=== PATIENT | female | born 1950 | race Two or more races ===

== ENCOUNTER 2018-10-22 01:29 | Emergency (ER) | payer MEDICARE, MEDICAID ==
[~2018-10-22] VITALS: Ht 152.4 cm; Wt 66.2 kg
[2018-10-22 02:04] LABS: Basophils # (auto) 0 uL; Basophils % (auto) 0.4 % (0.0-2.0); Eosinophils # (auto) 0.1 uL; Hematocrit 36.2 % (36.0-46.0); Mean Corpuscular Hemoglobin 28.5 pg (28.0-32.0); Mean Corpuscular Volume 86.3 fL (80.0-100.0); Monocytes # (auto) 0.9 uL; Monocytes % (auto) 8.5 % (0.0-12.0); Neutrophils # (auto) 6.6 uL; Neutrophils % (auto) 62.1 % (37.0-80.0); Platelet Count (auto) 218 10^3/uL (140-450); Red Cell Distribution Width 13.9 % (11.8-14.3); White Blood Cell 10.6 10^3/uL (4.4-10.8)
[2018-10-22 02:25] LABS: INR 0.93 (0.9-1.15)
[2018-10-22 02:37] LABS: Alanine Aminotransferase 32 U/L (13-56); Albumin 3.7 g/dL (3.4-5.0); Anion Gap 10 (5-15); Aspartate Aminotransferase 20 U/L (15-37); BUN/Creatinine Ratio 17.6; Blood Urea Nitrogen 15 mg/dL (7-18); Calcium 8.8 mg/dL (8.5-10.1); Carbon Dioxide 26 mmol/L (21-32); Chloride 99 mmol/L (98-107); GFR African American 85 mL/min; GFR Non-African American 70 mL/min; Glucose 153 mg/dL (74-106); Magnesium 1.7 mg/dL (1.6-2.6); Potassium 3.8 mmol/L (3.5-5.1); Sodium 135 mmol/L (136-145)
[2018-10-22 02:41] LABS: Urine Bacteria FEW /hpf (None Seen); Urine Blood Negative /uL (Negative); Urine Mucus FEW (None Seen); Urine Specific Gravity 1.005 (1.001-1.035); Urine WBC 6 /hpf (0 - 5)
[2018-10-22 02:42] LABS: Alkaline Phosphatase 92 U/L (45-117); Bilirubin, Total 0.3 mg/dL (0.2-1.0); Total Protein 7.9 g/dL (6.4-8.2)
[2018-10-22] MEDS ORDERED: LORazepam 0.5 MG TAB PO ONE (04:00)
[2018-10-22] MEDS ORDERED: LORazepam 0.5 MG TAB ONE (04:30)
[2018-10-22 04:41] VITALS: BP 155/74
== END 2018-10-22 04:48 | disposition home or self-care (01) ==
LOC: EDBD 01:38 → ER 01:38
DX: F41.9 Anxiety disorder, unspecified (principal); F32.9 Major depressive disorder, single episode, unspecified; N39.0 Urinary tract infection, site not specified; E11.9 Type 2 diabetes mellitus without complications; E78.5 Hyperlipidemia, unspecified
CPT/HCPCS: 36415; 71045; 80053; 81001; 82962; 83735; 83880; 84484; 85025; 85610; 85730; 93005

== ENCOUNTER 2022-01-18 05:41 | Inpatient (IN) | payer BC, MEDICAID ==
[~2022-01-18] VITALS: Ht 162.6 cm; Wt 71.8 kg
[2022-01-18] MEDS ORDERED: dilTIAZem 25 MG/5 ML VIAL IV ONE ×2 (05:54→06:15)
[2022-01-18] MEDS ORDERED: SODIUM CHLORIDE 0.9% 1,000 ML IV ONE (07:00)
[2022-01-18] MEDS ORDERED: SODIUM CHLORIDE 0.9% 1,000 ML IVB ONE (07:00)
[2022-01-18] MEDS ORDERED: ASPirin 81 mg TAB PO ONE (07:00)
[2022-01-18] MEDS ORDERED: AMIODARONE HCL 150 MG in D5W 5% 100 ML IV ONE (08:30)
[2022-01-18] MEDS ORDERED: AMIODARONE 450mg/250ml AE 250 ML IV SCH (08:45)
[2022-01-18 08:59] LABS: Basophils # (auto) 0 10 ^3/uL (0-0.2); Basophils % (auto) 0.5 % (0.0-2.0); Eosinophils # (auto) 0 10 ^3/uL (0-0.8); Eosinophils % (auto) 0.3 % (0.0-7.0); Hematocrit 31.3 % (36.0-46.0); Hemoglobin 10.5 g/dL (12.2-16.2); Lymphocytes # (auto) 1.8 10 ^3/uL (0.4-5.4); Lymphocytes % (auto) 24.2 % (10.0-50.0); Mean Corpuscular Hemoglobin 29.4 pg (28.0-32.0); Mean Corpuscular Hgb Conc. 33.6 g/dL (32.0-36.0); Mean Corpuscular Volume 87.7 fL (80.0-100.0); Monocytes # (auto) 0.6 10 ^3/uL (0-1.3); Monocytes % (auto) 7.6 % (0.0-12.0); Neutrophils % (auto) 67.4 % (37.0-80.0); Red Blood Cells 3.57 10^6/uL (4.0-5.20); White Blood Cell 7.5 10^3/uL (4.4-10.8)
[2022-01-18 09:08] LABS: INR 1.04 (0.9-1.15); Partial Thromboplastin Time 26.2 sec (23.6-33.0)
[2022-01-18 09:10] LABS: Albumin 2.9 g/dL (3.4-5.0); Magnesium 2.1 mg/dL (1.6-2.6); Potassium 3.9 mmol/L (3.5-5.1)
[2022-01-18 09:14] LABS: BUN/Creatinine Ratio 29.3; Bilirubin, Total 0.2 mg/dL (0.2-1.0); Total Protein 6.3 g/dL (6.4-8.2)
[2022-01-18] MEDS ORDERED: IOHEXOL 350 MG/ML 100ML IJ ONE (09:42)
[2022-01-18] MEDS ORDERED: ONDANSETRON HCL 4 MG/2 ML VIAL IV ONE (09:45)
[2022-01-18] MEDS ORDERED: ENOXAPARIN SOD 80 MG/0.8ML SYRINGE SC ONE (10:45)
[2022-01-18] MEDS ORDERED: MORPHINE SULFATE INJ 2 MG/ml SYRG IV PRN ×2 (12:00→12:45)
[2022-01-18] MEDS ORDERED: DEXTROSE (50%) 50ML SYRG IV PRN (12:00)
[2022-01-18] MEDS ORDERED: NITROGLYCERIN 0.4 MG SL TAB SL PRN (12:00)
[2022-01-18] MEDS ORDERED: METOPROLOL TARTRATE 1MG/1ML-5ML VIAL IV PRN (12:45)
[2022-01-18] MEDS ORDERED: LORazepam 0.5 MG TAB PO PRN (12:45)
[2022-01-18] MEDS ORDERED: ONDANSETRON HCL 4 MG/2 ML VIAL IV PRN (12:45)
[2022-01-18] MEDS ORDERED: DOCUSATE SOD 100 MG CAP PO PRN (12:45)
[2022-01-18] MEDS ORDERED: HYDROcodone-ACET 5/325MG TAB PO PRN (12:45)
[2022-01-18] MEDS: cefTRIAXone 1GM/50ML D5W 50 ML IV SCH (12:58)
[2022-01-18] MEDS: SODIUM CHLORIDE 0.9% 1,000 ML IV SCH (13:28)
[2022-01-18 14:29] LABS: Urine Bacteria NONE SEEN /hpf (None Seen); Urine Blood Negative /uL (Negative); Urine Specific Gravity 1.045 (1.001-1.035); Urine WBC 44 /hpf (0 - 5)
[2022-01-18 15:19] LABS: INR 1.04 (0.9-1.15); Partial Thromboplastin Time 29.8 sec (23.6-33.0)
[2022-01-18 15:24] LABS: Magnesium 1.7 mg/dL (1.6-2.6); Phosphorus 3.6 mg/dL (2.5-4.90)
[2022-01-18] MEDS: ACCU-CHEK COMFORT CURVE STRIP VI SCH ×2 (17:00→22:00)
[2022-01-18] MEDS: InsuLIN REG 1unit/0.01ml Soln (100units/ml) SC SCH ×2 (18:33→22:00)
[2022-01-18] MEDS: AMIODARONE 450mg/250ml AE 250 ML IV SCH (18:34)
[2022-01-18] MEDS: ATORVASTATIN 20 MG TAB PO SCH (23:29)
[2022-01-19 05:05] LABS: Basophils # (auto) 0.1 10 ^3/uL (0-0.2); Basophils % (auto) 0.8 % (0.0-2.0); Eosinophils # (auto) 0.1 10 ^3/uL (0-0.8); Eosinophils % (auto) 0.8 % (0.0-7.0); Hematocrit 30.1 % (36.0-46.0); Hemoglobin 10.2 g/dL (12.2-16.2); Lymphocytes # (auto) 2.8 10 ^3/uL (0.4-5.4); Mean Corpuscular Hemoglobin 30.2 pg (28.0-32.0); Mean Corpuscular Volume 88.8 fL (80.0-100.0); Monocytes # (auto) 0.5 10 ^3/uL (0-1.3); Monocytes % (auto) 6.6 % (0.0-12.0); Neutrophils # (auto) 3.9 10 ^3/uL (1.6-8.6); Neutrophils % (auto) 53.8 % (37.0-80.0); Nucleated Red Blood Cells % 0.1 %; Red Blood Cells 3.39 10^6/uL (4.0-5.20); White Blood Cell 7.3 10^3/uL (4.4-10.8)
[2022-01-19 05:21] LABS: INR 1.04 (0.9-1.15); Partial Thromboplastin Time 24.2 sec (23.6-33.0)
[2022-01-19] MEDS: SODIUM CHLORIDE 0.9% 1,000 ML IV SCH ×2 (05:25→22:52)
[2022-01-19 05:28] LABS: BUN/Creatinine Ratio 25.6; Calcium 8.3 mg/dL (8.5-10.1); Magnesium 1.8 mg/dL (1.6-2.6); Potassium 3.5 mmol/L (3.5-5.1); Uric Acid 3.8 mg/dL (2.6-6.0)
[2022-01-19 05:32] LABS: Bilirubin, Total 0.3 mg/dL (0.2-1.0); CRP High Sensitivity 0.88 mg/dL (< 0.3); Phosphorus 3.2 mg/dL (2.5-4.90); Thyroid Stimulating Hormone 3.54 uIU/mL (0.358-3.74); Total Protein 6.3 g/dL (6.4-8.2)
[2022-01-19] MEDS: ACCU-CHEK COMFORT CURVE STRIP VI SCH ×4 (07:02→22:21)
[2022-01-19] MEDS: InsuLIN REG 1unit/0.01ml Soln (100units/ml) SC SCH ×4 (07:03→22:33)
[2022-01-19] MEDS: AMIODARONE 450mg/250ml AE 250 ML IV SCH ×2 (09:37→22:32)
[2022-01-19] MEDS: cefTRIAXone 1GM/50ML D5W 50 ML IV SCH (09:37)
[2022-01-19] MEDS ORDERED: FAMOTIDINE (10MG/ML) 2ML VL IV SCH (10:00)
[2022-01-19] MEDS: ASPirin 81 mg TAB PO SCH (10:34)
[2022-01-19] MEDS: ENOXAPARIN SOD 40 MG/0.4 ML SYRINGE SC SCH (10:36)
[2022-01-19] MEDS: hydrALAZINE HCL 20 MG/ML VL IV PRN (13:37)
[2022-01-19] MEDS ORDERED: METF-372 PO (15:06)
[2022-01-19] MEDS ORDERED: FER325T PO (15:06)
[2022-01-19] MEDS ORDERED: EMPA1TAB PO (15:06)
[2022-01-19] MEDS ORDERED: SIMV-13 PO (15:06)
[2022-01-19] MEDS ORDERED: LOSA-39 PO (15:06)
[2022-01-19] MEDS ORDERED: HYDR25TA4 PO (15:06)
[2022-01-19] MEDS ORDERED: ALBUAER3 IN (15:06)
[2022-01-19] MEDS ORDERED: ASPI1TAB20 PO (15:06)
[2022-01-19 16:46] VITALS: BP 154/63
[2022-01-19 22:00] VITALS: BP 168/73
[2022-01-19] MEDS: ATORVASTATIN 20 MG TAB PO SCH (22:20)
[2022-01-19] MEDS: METOPROLOL TARTRATE 25 MG TAB PO SCH (22:21)
[2022-01-20 05:00] VITALS: BP 116/63
[2022-01-20] MEDS: InsuLIN REG 1unit/0.01ml Soln (100units/ml) SC SCH ×2 (05:54→13:11)
[2022-01-20] MEDS: ACCU-CHEK COMFORT CURVE STRIP VI SCH ×2 (05:54→13:11)
[2022-01-20] MEDS: cefTRIAXone 1GM/50ML D5W 50 ML IV SCH (08:52)
[2022-01-20 09:00] VITALS: BP 152/53
[2022-01-20] MEDS: METOPROLOL TARTRATE 25 MG TAB PO SCH (10:00)
[2022-01-20] MEDS ORDERED: METO25TA5 PO (10:11)
[2022-01-20] MEDS ORDERED: AMIO200T33 PO (10:11)
[2022-01-20] MEDS ORDERED: LEVO750T8 PO (10:11)
[2022-01-20] MEDS ORDERED: AMIODARONE HCL 200 MG TAB PO ONE (10:15)
[2022-01-20] MEDS: ASPirin 81 mg TAB PO SCH (12:20)
[2022-01-20] MEDS: ENOXAPARIN SOD 40 MG/0.4 ML SYRINGE SC SCH (12:25)
[2022-01-20] MEDS: hydrALAZINE HCL 20 MG/ML VL IV PRN (12:55)
[2022-01-20 15:13] VITALS: BP 178/60
[2022-01-20] MEDS ORDERED: cloNIDine HCL 0.1 MG TAB PO ONE (15:15)
[2022-01-20] MEDS ORDERED: cloNIDine HCL 0.1 MG TAB ONE (15:39)
[2022-01-20] MEDS ORDERED: AMIODARONE HCL 200 MG TAB PO SCH (22:00)
== END 2022-01-20 16:18 | disposition home or self-care (01) | DRG 281 ==
LOC: ER 05:41 → EDBD 05:41 → TELE 11:55 → TELE-WESTW 01-19 14:13
PROVIDERS: ADMIT Hospitalist; ATTEND Family Medicine
DX: I21.4 Non-ST elevation (NSTEMI) myocardial infarction (principal); I47.1 Supraventricular tachycardia; E44.0 Moderate protein-calorie malnutrition; N39.0 Urinary tract infection, site not specified; I48.0 Paroxysmal atrial fibrillation; D63.8 Anemia in other chronic diseases classified elsewhere; E03.8 Other specified hypothyroidism; E11.21 Type 2 diabetes mellitus with diabetic nephropathy; E11.40 Type 2 diabetes mellitus with diabetic neuropathy, unspecified; E66.9 Obesity, unspecified; E78.5 Hyperlipidemia, unspecified; F41.9 Anxiety disorder, unspecified; E78.00 Pure hypercholesterolemia, unspecified; I10 Essential (primary) hypertension; Z20.822 Contact with and (suspected) exposure to COVID-19; Z68.27 Body mass index [BMI] 27.0-27.9, adult; Z90.49 Acquired absence of other specified parts of digestive tract; Z79.84 Long term (current) use of oral hypoglycemic drugs
CPT/HCPCS: 36415; 71045; 71275; 80053; 80061; 81001; 82550; 82728; 82962; 83036; 83615; 83690; 83735; 83880; 84100; 84439; 84443; 84484; 84550; 85025; 85379; 85610; 85652; 85730; 86141; 87040; 87077; 87086; 87186; 93005; 93306; 96361; 96365; 96366; 96372; 96375; 99291; G0378; J0696; J1815; J2405; J3490; J7060